=== PATIENT | female | born 1990 ===

== ENCOUNTER 2024-07-22 14:56 | Inpatient (IN) | payer SELFPAY ==
[2024-07-22] MEDS ORDERED: Sodium Chloride 0.9% 10 ML Syringe FLUSH PRN (15:08)
[2024-07-22] MEDS: Sodium Chloride 0.9% 1,000 ML IV ONE ×3 (15:27→18:38)
[2024-07-22 15:29] LABS: HEMATOCRIT 39.5 % (37.0-47.0); HEMOGLOBIN 12.6 g/dL (12.0-16.0); MEAN CORPUSCULAR HEMOGLOBIN 29.2 pg (27.0-34.0); MEAN CORPUSCULAR HGB CONC 31.9 g/dL (33.0-35.0); MEAN CORPUSCULAR VOLUME 91.4 fL (80-100); PLATELET COUNT,PLT 317 10^3/uL (150-450); RED BLOOD CELL COUNT 4.32 10^6/uL (4.2-5.4); WHITE BLOOD CELL COUNT,WBC 30.6 10^3/uL (5.0-10.0)
[2024-07-22] MEDS: fentaNYL 100 MCG/2 ML SDV IVPUSH ONE (15:33)
[2024-07-22 15:34] LABS: APPEARANCE,URINE CLOUDY (CLEAR); BILIRUBIN,URINE NEGATIVE (NEGATIVE); COLOR,URINE YELLOW (YELLOW); GLUCOSE,URINE NEGATIVE (NEGATIVE); KETONES,URINE NEGATIVE (NEGATIVE); LEUKOCYTE ESTERASE,URINE SMALL (NEGATIVE); NITRITE,URINE POSITIVE (NEGATIVE); OCCULT BLOOD,URINE MODERATE (NEGATIVE); PH,URINE 7.5 (5.0-9.0); PROTEIN,URINE >=300 (NEGATIVE); UROBILINOGEN,URINE >=8.0 mg/dL (0.2-1.0)
[2024-07-22] MEDS: Ketorolac 30 MG/ML SDV IVPUSH ONE (15:34)
[2024-07-22] MEDS: Ondansetron 4 MG/2 ML SDV IVPUSH ONE (15:35)
[2024-07-22 15:38] LABS: BASOPHILS PERCENT AUTO 0.1 % (0.0-1.0); LYMPHOCYTES PERCENT AUTO 4.6 % (20.5-50.1); MONOCYTES PERCENT AUTO 10.9 % (2-8); NEUTROPHILS PERCENT AUTO 84.4 % (42.2-75.2)
[2024-07-22 15:42] LABS: EPITHELIAL CELLS,URINE MANY /HPF (NOT SEEN)
[2024-07-22 15:43] LABS: BACTERIA,URINE MODERATE /HPF (0-FEW/HPF)
[2024-07-22 15:44] LABS: WBC,URINE 75-100 /HPF (0-5/HPF)
[2024-07-22 15:48] LABS: A/G RATIO 0.8; ALBUMIN 3.4 g/dL (3.4-5.0); ANION GAP 19.4 mEq/L (7-13); BILIRUBIN TOTAL 0.5 mg/dL (0.2-1.0); BUN/CREATININE RATIO 16.8 (No establ ref range); C-REACTIVE PROTEIN 17.14 ng/dL (<=0.50); CALCIUM 9.5 mg/dL (8.5-10.1); CREATININE 1.01 mg/dL (0.55-1.02); EST CRCL DRUG DOSING (CG) 59.78 mL/min; MAGNESIUM 1.6 mg/dL (1.8-2.4); POTASSIUM,K 3.4 mmol/L (3.5-5.1); PROTEIN TOTAL,TP 7.9 g/dL (6.4-8.2)
[2024-07-22 15:55] LABS: LACTIC ACID 3.2 mmol/L (0.4-2.0)
[2024-07-22] MEDS: Piperacillin/Tazobactam 3.375 GM in Sodium Chloride 0.9% 100 ML IV ONE (15:57)
[2024-07-22] MEDS: Iopamidol 612 MG/ML 100 ML Bottle IVPUSH ONE (15:57)
[2024-07-22 16:05] LABS: BAND PERCENT MAN 11 %; LYMPHOCYTES PERCENT MAN 3 % (20-50); MONOCYTES PERCENT MAN 7 % (2-8); SEG NEUTROPHILS PERCENT MAN 79 % (42-75)
[2024-07-22 16:06] LABS: PLATELET COUNT ESTIMATE ADEQUATE
[2024-07-22] MEDS: Acetaminophen 500 MG Tab PO ONE (16:40)
[2024-07-22] MEDS: HYDROmorphone 0.5 MG/0.5 ML Syringe IVPUSH ONE (17:19)
[2024-07-22] MEDS ORDERED: Acetaminophen 325 MG Tab PO PRN (17:58)
[2024-07-22] MEDS: Enoxaparin 40 MG/0.4 ML Syringe SUBCUT SCH (18:38)
[2024-07-22] MEDS: Acetaminophen/Butalbital/Caffeine 325-50-40 MG Tab PO PRN (19:01)
[2024-07-22] MEDS: Pantoprazole 40 MG Vial IVPUSH SCH (21:03)
[2024-07-22] MEDS: Ketorolac 30 MG/ML SDV IVPUSH PRN (21:35)
[2024-07-22] MEDS: diphenhydrAMINE 50 MG/ML SDV IVPUSH PRN (21:35)
[2024-07-23] MEDS: HYDROmorphone 0.5 MG/0.5 ML Syringe IVPUSH PRN (01:52)
[2024-07-23] MEDS: oxyCODONE 5 MG Tab PO PRN (03:13)
[2024-07-23 05:48] LABS: HEMATOCRIT 30.2 % (37.0-47.0); HEMOGLOBIN 9.3 g/dL (12.0-16.0); MEAN CORPUSCULAR HEMOGLOBIN 29.4 pg (27.0-34.0); MEAN CORPUSCULAR HGB CONC 30.8 g/dL (33.0-35.0); MEAN CORPUSCULAR VOLUME 95.6 fL (80-100); RED BLOOD CELL COUNT 3.16 10^6/uL (4.2-5.4); WHITE BLOOD CELL COUNT,WBC 21.9 10^3/uL (5.0-10.0)
[2024-07-23 06:04] LABS: ANION GAP 11.7 mEq/L (7-13); CREATININE 0.78 mg/dL (0.55-1.02); EST CRCL DRUG DOSING (CG) 77.41 mL/min; POTASSIUM,K 3.7 mmol/L (3.5-5.1)
[2024-07-23] MEDS: cefTRIAXone 1 GM Vial IVPUSH SCH (08:41)
[2024-07-23] MEDS: Ondansetron 4 MG/2 ML SDV IVPUSH PRN (12:34)
[2024-07-23] MEDS: Topiramate 25 MG Tab PO SCH (20:08)
== END 2024-07-24 12:10 | disposition left against medical advice (07) | DRG 690 ==
LOC: DL.ED 14:56 → DL.MS 17:28 → DL.ED 17:47
PROVIDERS: ADMIT Internal Medicine; ATTEND Internal Medicine
DX: N12 Tubulo-interstitial nephritis, not specified as acute or chronic (principal); G43.909 Migraine, unspecified, not intractable, without status migrainosus; Z98.51 Tubal ligation status
CPT/HCPCS: 36415; 74177; 80048; 80053; 81001; 81025; 82947; 83605; 83735; 85025; 85027; 86140; 87040; 87086; 87088; 87186; 87428-QW; 96365; 96366; 96368; 96375; 99223; 99233; 99238; 99285; 99285-25; A9270-GY; J0696; J1171; J1200; J1650; J1885; J2405; J2470; J2543; J3010; J3490; J7030; J7050; Q9967